=== PATIENT | female | born 1980 | race Caucasian/White ===

== ENCOUNTER → 2016-12-14 | Outpatient (CLI) | payer OTHER ==
--- NOTE | 2016-12-14 16:18 | REP ---
PET/CT: History: Restaging lymphoma. History of diffuse large B-cell lymphoma diagnosed in late 2013 in the lumbar paraspinal mass. She is status post chemotherapy. Comparisons: No comparison imaging is available. TECHNIQUE: 53 minutes following the intravenous injection of a 9.7 mCi dose of F-18 FDG, three-dimensional PET scintigraphy is acquired from the skull base to the proximal thighs. Triplanar noncontrast CT scanning is acquired through the same anatomic range for attenuation correction, and image registration with scan parameters optimized to minimize radiation exposure to the patient. PET scintigraphy and CT datasets were fused and displayed on a workstation with multiplanar and projection display capability. PET/CT Findings: Head and neck soft tissues are unremarkable. There is no abnormal hypermetabolic uptake within the chest. In the abdomen and pelvis, normal hepatic, splenic, gastrointestinal, and genitourinary FDG accumulation is seen. No abnormal hypermetabolic uptake is appreciated. No abnormal soft tissue mass is seen. There is a 4.0 cm right ovarian cyst. No FDG accumulation. Impression: Negative PET CT study. Signed by Sven Aguilera MD 12/14/2016 06:38 P
== END ==
LOC: M PLARAD 07:33
PROVIDERS: ATTEND Internal Medicine Medical Oncology
DX: C83.39 Diffuse large B-cell lymphoma, extranodal and solid organ sites (principal)
CPT/HCPCS: 78815; A9552

== ENCOUNTER → 2018-06-20 | Outpatient (CLI) | payer OTHER ==
[~2018-06-20] MED LIST: CITA20TA4 PO
--- NOTE | 2018-06-20 19:10 | REP ---
RIGHT BREAST ULTRASOUND: 06/20/2018: Clinical history: The patient reports a palpable area 5 o'clock region in the lower inner quadrant right breast and her physician notes possible area at the 7 o'clock position lower outer quadrant. The patient states she can no longer feel urea she had some concern about. Findings: Sonographic evaluation of the lower inner and lower outer quadrants in these regions is performed. There is heterogeneous echogenic parenchyma throughout the 4-8 o'clock area of the breast where she has pain and palpable findings reported. There is no mass, cyst, dilated duct or architectural distortion. No skin thickening. Impression: 1. BIRADS ACR category 1 negative breast ultrasound. No evidence of malignancy. Please see mammogram report this date for final assessment. Electronically Signed by Tristan Chamorro MD 06/20/2018 10:06 P
--- NOTE | 2018-06-20 19:14 | REP ---
BILATERAL DIAGNOSTIC DIGITAL MAMMOGRAM: 05/23/2018. Clinical history: The patient reports painful 7 o'clock area of palpable lower outer quadrant right breast by her physician, possible 5 o'clock area noted by herself. Comparison right breast ultrasound this date. Technique: Standard two-view digital mammography performed. Spot magnified CC, MLO and true MLO images in the right breast and areas of concern were also obtained. Findings: This is a baseline examination. There are some scattered fibroglandular elements of moderate density in the retroareolar and upper outer quadrant of each breast in a symmetric fashion. Scattered lymph nodes are seen in the axilla. There is a benign intramammary node in the upper outer quadrant of the left breast. Scattered small benign appearing calcifications are present of doubtful clinical significance. I see no dominant mass, architectural distortion, suspicious cluster of microcalcification, skin thickening or other secondary sign of malignancy. On the spot magnified views of the right breast in CC, MLO and true MLO projections, I see no subjacent mass, architectural distortion, clustered microcalcification or other signs of malignancy. The right breast ultrasound scanning from 4-8 o'clock position showed no sonographically definable mass, cyst, dilated duct or architectural distortion. Impression: 1. BIRADS ACR category 2, benign. Benign finding. No evidence of malignancy. No mammographic or sonographic significant finding. 2. Recommend followup mammography at age 41 or sooner if clinically indicated. This negative report should not deter further evaluation of a dominant or suspicious physical finding. This mammogram was interpreted with the aid of an FDA-approved computer-aided detection system. The patient states she had a clinical breast exam on 06/15/2018. The patient letter being requested is M2. Electronically Signed by Tristan Chamorro MD 06/20/2018 10:07 P
== END ==
LOC: M RAD 13:44
PROVIDERS: ATTEND Internal Medicine Medical Oncology
DX: N63.0 Unspecified lump in unspecified breast (principal)